=== PATIENT | male | born 1980 | race Two or more races ===

== ENCOUNTER 2020-06-30 19:13 | Emergency (ER) | payer SELFPAY | END 2020-06-30 19:39 | disposition left against medical advice (07) | LOC: ER 19:13 | DX: Z53.21 Procedure and treatment not carried out due to patient leaving prior to being seen by health care provider (principal); S49.90XA Unspecified injury of shoulder and upper arm, unspecified arm, initial encounter; X58.XXXA Exposure to other specified factors, initial encounter ==